=== PATIENT | male | born 1945 | race Caucasian/White ===

== ENCOUNTER → 2024-07-02 12:36 | Outpatient (REF) | payer OTHER, SELFPAY | LOC: RCS 12:36 | PROVIDERS: ATTENDING PHYSICIAN Family Medicine | DX: R06.02 Shortness of breath (principal); R07.89 Other chest pain | CPT/HCPCS: 93017 ==

== ENCOUNTER → 2024-07-05 15:27 | Outpatient (REF) | payer OTHER, SELFPAY | LOC: HWRCS 15:27 | PROVIDERS: ATTENDING PHYSICIAN Family Medicine | DX: R06.02 Shortness of breath (principal); R07.89 Other chest pain | CPT/HCPCS: 93306 ==

== ENCOUNTER → 2024-08-15 10:11 | Outpatient (REF) | payer OTHER, SELFPAY | LOC: RAD 10:11 | PROVIDERS: ATTENDING PHYSICIAN Student in an Organized Health Care Education/Training Program; FAMILY PHYSICIAN Family Medicine | DX: R06.02 Shortness of breath (principal) | CPT/HCPCS: 75574; Q9967 ==

== ENCOUNTER 2024-09-06 08:15 | Day surgery (SDC) | payer OTHER, SELFPAY ==
[2024-08-27 13:16] VITALS: BMI 27.6
[2024-08-27 13:45] LABS: % Basophils 0.5 % (0-2); % Eosinophils 2.4 % (0-6); % Immature Granulocytes 0.3 % (0-0.5); % Lymphocytes 22.7 % (20.5-51.1); % Monocytes 11.6 % (1.7-9.3); % Neutrophils 62.5 % (42.2-75.2); Absolute Eosinophils 0.1 10^3/uL (0-0.7); Absolute Lymphocytes 1.3 10^3/uL (1.2-3.4); Absolute Monocytes 0.7 10^3/uL (0.1-0.6); Absolute Neutrophils 3.7 10^3/uL (1.4-6.5); Hematocrit 41.8 % (39.0-52.0); Hemoglobin 14.2 g/dL (13.0-18.0); Mean Corpuscular Hgb 30.6 pg (27.0-31.0); Mean Corpuscular Volume 90.1 fL (80.0-94.0); Mean Platelet Volume 9.3 fL (7.4-10.4); Nucleated Red Blood Cells % 0 % (-); Platelet Count 228 10^3/uL (130-400); Red Blood Cell Count 4.64 10^6/uL (4.70-6.10); Red Cell Dist. Width 12.7 % (11.5-14.5); White Blood Cell Count 5.9 10^3/uL (4.8-10.8)
--- NOTE | 2024-08-27 14:07 | HPS.HSE ---
Family Physician
-
Family Physician: Nasir Donovan
Chief Complaint
-
Shortness of breath on exertion. Abnormal stress test and coronary CTA.
History of Present Illness
The patient is a 79 year old male presenting today with a longstanding history of shortness of breath on exertion. He appears physically fit and healthy but reportedly has had trouble with endurance exercises 'all my life' secondary to his
shortness of breath. In addition to his dyspnea, he reports a 'cold sensation' radiating down his chest. He was prescribed a rescue inhaler as needed in the event his symptoms were associated with bronchospasm. He tried Albuterol 'a few times' prior
to exerting himself and unfortunately only noted minimal relief. An exercise stress test on 07/03/2024 demonstrated ischemic changes with associated chest discomfort at 7.5 METS. His exercise tolerance was considered below average for both his age
and gender. A coronary CTA on 08/15/2024 revealed a high coronary calcium score of 2883, which raises concerns for multivessel obstructive coronary artery disease. It is advised he proceed with a left cardiac catheterization at this time for further
symptom evaluation. He denies any current complaints today such as chest pain, shortness of breath at rest, palpitations, nausea, vomiting, diarrhea, lightheadedness, dizziness, cough, sore throat, or fever.
Medical History
Past Medical History
Past Medical History: Reports Other
Additional Past Medical History:
1. Shortness of breath on exertion.
2. Abnormal stress test and coronary CTA.
3. Hypertension.
4. Hypercholesterolemia.
5. First degree AV block.
6. Chronic post-nasal drip.
7. GERD.
8. Diverticulitis 2010.
9. Hemorrhoids.
10. Osteoarthritis.
Past Surgical History: Reports Other
Additional Past Surgical History:
1. Abdominal hernia repair.
2. Cholecystectomy.
3. Hernia repair in infancy.
4. Neck muscle surgery.
5. Colonoscopy x3.
Social History
Tobacco: Non-smoker
Alcohol: Occasional
Living: Other (He lives with his brother in a split level home. )
Family History
Family History: Not pertinent
Allergies / Home Medications
Allergy/Medication List:
Home medications:
1. Albuterol sulfate 2 puffs inhaled up to four times a day as needed.
2. Aspirin 81 mg p.o. at bedtime.
3. Atorvastatin 40 mg p.o. at bedtime.
4. CoQ 10 100 mg p.o. at bedtime.
5. Ibuprofen 200 mg p.o. every 6 hours as needed.
6. Multivitamin 1 tablet p.o. at bedtime.
Allergies: No known allergies.
Review of Systems
-
A 12 point ROS was completed and negative except as noted: Yes
Physical Exam
Vital Signs
Blood pressure 156/85. Heart rate 70. Respirations 18. Pulse ox 98% on room air.
Height 5 feet, 5 inches. Weight 75.2 kg. BMI 27.6.
Physical Exam
General: Well Developed, Well Nourished and No Apparent Distress
HEENT: NormoCephalic, Moist mucous membranes, Atraumatic and PERRLA
Respiratory: Clear
Cardiac: Regular Rhythm
GI: Soft, Non Tender and Non Distended
Musculoskeletal: Normal Gait & Station
Skin: Warm and Dry
Neuro: AO x 3 and Nonfocal/grossly intact
Laboratory Results
-
08/27/24 13:29
DIAGNOSTIC STUDIES as of 08/27/2024: Sodium 140. Potassium 4.4. BUN 17. Creatinine 0.9. Glucose 107. Calcium 10.2. AST 29. ALT 35. Albumin 4.6.
EKG 08/27/2024: Sinus rhythm with first degree AV block. Otherwise normal EKG.
Exercise stress test 07/03/2024: Ischemic ECG changes with associated chest discomfort at 7.5 METS. Exercise tolerance below average for age and gender. Intermediate risk study (DTS -3.5). There is no prior study available for comparison.
Echocardiogram 07/05/2024: LV ejection fraction is 55-60% by visual assessment. No regional wall motion abnormalities are seen. Normal right ventricular size and function. No significant valvular disease. No prior study available for comparison.
Coronary CTA 08/24/2024: High coronary calcium score of 2,883. Dense calcification throughout all coronary territories, which in some cases limits luminal assessment. Concern raised for multivessel obstructive coronary artery disease; cannot exclude
distal left main stenosis.
Impression/Plan
-
IMPRESSION/PLAN:
1. Shortness of breath on exertion and abnormal stress test and coronary CTA: The patient is in need of a left cardiac catheterization with Dr. Douglas Hernandez on 09/06/2024. The benefits and risks of the procedure have been explained to the
patient. The patient understands these risks and wishes to proceed. He is aware to continue his daily baby Aspirin up to and including the morning of his procedure.
[2024-08-27 14:57] LABS: ALT (SGPT) 35 U/L (0-50); AST (SGOT) 29 U/L (17-59); Albumin 4.6 g/dl (3.5-5.0); Alkaline Phosphatase 48 U/L (38-126); Blood Urea Nitrogen 17 mg/dl (9-20); Calcium 10.2 mg/dl (8.4-10.2); Carbon Dioxide 28 mmol/L (22-30); Chloride 100 mmol/L (98-107); Estimated Creatinine Clearance 59 ml/min; Glucose 107 mg/dl (70-99); Potassium 4.4 mmol/L (3.5-5.1); Sodium 140 mmol/L (135-145); Total Bilirubin 0.4 mg/dl (0.2-1.3); Total Protein 7.3 g/dl (6.3-8.2); eGFR > 60.00
[2024-09-06] VITALS (9 sets, daily range): BP systolic 108–143; BP diastolic 64–89; BMI 25.4
[2024-09-06] MEDS: NSS 1000 IV (10:48)
--- NOTE | 2024-09-06 16:58 | ITS.CL.PN ---
[facility] - Procedure Note
Procedure
Procedure Note:
CARDIAC CATHETERIZATION REPORT
Date of Procedure: 09/06/2024
Referring: Dr. Douglas Hernandez MD, PhD
Indication: coronary CTA with concern for severe three-vessel disease, atypical angina
PROCEDURE(S)
1. left heart catheterization
2. coronary angiography
ACCESS: 6F right radial artery (closure: radial band)
CATHETERS
1. 6F JL3.5
2. 6F JR4
HEMODYNAMIC DATA
LV 119/3 (EDP 9) mmHg
AO 117/65 (mean 87) mmHg
CORONARY ANGIOGRAPHY
Dominance: right
LM: large vessel with mild disease
LAD: gives rise to a small D1, large D2, small D3, and multiple septal perforators. There is a 70% stenosis proximal to the D1 and a long 80% stenosis in the mid to distal vessel. There is a 95% stenosis of the D2.
LCx: large vessel that gives rise to a moderate caliber OM1 and a large OM 2 before being totally occluded. The mid to distal circumflex is supplied by robust collaterals from the RCA and faint L-L collaterals.
RCA: large vessel giving rise to a moderate caliber RPDA and several RPL branches. There is mild disease in the RCA proper. The RPDA has a total occlusion in the mid vessel with the distal RPDA supplied by L-R collaterals.
RADIATION: dose 379 mGy; DAP 26.8 Gy*cm2; fluoroscopy time 3.8 min
CONCLUSIONS
1. multivessel coronary artery disease and a right dominant system.
2. normal LV filling pressure and no aortic stenosis on pullback
RECOMMENDATIONS
1. expectant management after cardiac catheterization via right radial approach
2. continued aggressive medical management of CAD with goal LDL less than 70.
3. Currently, the patient is not experiencing symptoms that are consistent with typical angina, and has a normal EF on echocardiogram. Revascularization may offer some reduction in risk for NH, but is not expected to have a mortality benefit in this
population and is a 2b indication. We will pursue medical management initially. If the patient experiences symptoms concerning for angina, I will recommend revascularization, with preference for surgical revascularization given the patient's high
Syntax disease.
Copy to: Dr. Nasir Donovan MD (PCP)
Signed: Douglas Hernandez MD, PhD
== END 2024-09-06 13:30 | disposition home or self-care (01) ==
LOC: CATH 08:15
PROVIDERS: ATTENDING PHYSICIAN Student in an Organized Health Care Education/Training Program; FAMILY PHYSICIAN Family Medicine
DX: I25.10 Atherosclerotic heart disease of native coronary artery without angina pectoris (principal); R06.02 Shortness of breath; R94.39 Abnormal result of other cardiovascular function study; I10 Essential (primary) hypertension; E78.00 Pure hypercholesterolemia, unspecified; I44.0 Atrioventricular block, first degree; K21.9 Gastro-esophageal reflux disease without esophagitis; M19.90 Unspecified osteoarthritis, unspecified site; Z79.82 Long term (current) use of aspirin
CPT/HCPCS: 36415; 80053; 85025; 93005; 93458; C1894